=== PATIENT | female | born 1975 | race Two or more races ===

== ENCOUNTER 2016-02-12 17:00 | Emergency (ER) | payer SELFPAY ==
[2016-02-12 17:10] VITALS: TEMP 99.7; BMI 32.7
[2016-02-12 17:28] LABS: AUTOMATED EOSINOPHIL 1.7 % (0-5); AUTOMATED LYMPH 14.2 % (17-44); AUTOMATED MONOCYTE 9.2 % (3-10); AUTOMATED NEUTROPHIL 73.9 % (45-76); MPV 7.1 fL (7.4-10.4)
[2016-02-12 17:41] LABS: BLOOD UREA NITROGEN 16 MG/DL (7-17); CALCIUM 9.1 MG/DL (8.4-10.2); CALCULATED OSMOLALITY 265 MOs/Kg (270-290); CHLORIDE 103 mEq/L (98-107); GLUCOSE 99 MG/DL (70-99); SODIUM LEVEL 137 mEq/L (137-146); TOTAL PROTEIN 7.9 G/DL (6.3-8.2)
[2016-02-12 17:45] LABS: LEUKOCYTES/URINE 2+ (NEGATIVE); NITRITE/URINE NEG (NEGATIVE); URINE OCCULT BLOOD 2+ (NEG/TRACE)
--- NOTE | 2016-02-12 20:00 | EDPRACDOC ---
- General Information Chief Complaint: Abdominal Pain Stated Complaint: RT LOWER ABD PAIN Time Seen by Provider: 02/12/16 19:57 Information Source: Patient Mode Of Arrival: Car Home Medications: Home Medications Hydrocodone Bit/Acetaminophen [Lortab 5/325] 1 tab PO Q6H PRN #14 tab 02/12/16 Multivitamin [One Daily Essential] 1 tab PO DAILY 02/12/16 Allergies/Adverse Reactions: Allergies Allergy/AdvReac Type Severity Reaction Status Date / Time No Known Allergies Allergy Verified 02/12/16 17:16 - History of Present Illness Onset: YESTERDAY HPI: PAIN IS MIDWAY BETWEEN RUQ AND RLQ; SENT HERE BY Pain Location: Reports: Periumbilical Pain Context: Reports: Spontaneous Pain Severity: Mild Pain Quality: Reports: Aching Pain Radiation: Reports: No Radiation Last Menstrual Period: 02/04/16 : No Adult Abdominal History: Denies: Abdominal Surgery Modifying Factors: improves with: Nothing Female Associated Signs & Symptoms: Reports: Nausea Oral Intake: Decreased Urinary Output: Normal ED Past Medical History - History Reviewed Yes Nurses notes reviewed and agree except as marked EDM Review of Systems - Review of Systems ROS Negative Except as Marked: Yes All systems reviewed and were negative except as marked - Physical Exam Constitutional: Alert (Awake), No apparent distress Oriented to: Time, Person, Place Last recorded Vital Signs: Last Vital Signs Temp 99.7 F 02/12/16 17:06 Pulse 107 02/12/16 21:15 Resp 20 02/12/16 21:15 BP 125/64 02/12/16 21:15 Pulse Ox 98 02/12/16 21:15 Oxygen Pulse Oxygen Saturation 98 O2 Device Room Air Oxygen Flow Rate Fraction of Inspired Oxygen ( FIO2) - HEENT Head: Normal ( normocephalic) Eye Exam: Normal (PERRL, EOMI, Sclera white) Oropharynx: Normal (Pharynx:Moist without exudate,Gums-no swelling) ENT EAC: Normal TMJ: Normal Nose: No Symptoms Reported (septum midline) Neck: Normal (FROM, trachea at midline) - Respiratory/Cardiovascular Respiratory: Normal - CTA (BBS clear to auscultation without adventitious sounds ) Cardiovascular: Normal (RRR without murmur, gallop or rub) - GI Auscultation: Normal (NABS) Palpation: Normal (Soft,No rebound or guarding, non distended) Tenderness: Mild, Periumbilical Forrest's Sign: Negative - Musculoskeletal Back: Normal (Non-Tender) Extremities: Normal (Normal tone, Pulses 2+ No cyanosis or edema, FROM) - Integumentary Skin: Normal, Warm, Dry Lymphatics: Normal (no adenopathy) - Neurologic Memory Impaired: Normal Motor Function: Normal (Normal tone, Pulses 2+ No cyanosis or edema, FROM) Cranial Nerve: Normal (CN II-X11 intact sensation, strength 5/5) Cerebellar: Normal Mood Description: Normal Perception: Normal - Results 02/12/16 17:13 02/12/16 17:13 WBC 15.1 xk/uL (3.8-10.8) H 02/12/16 17:13 RBC 4.47 xM/uL (4.20-5.40) 02/12/16 17:13 Hgb 12.9 g/dL (12.0-16.0) 02/12/16 17:13 Hct 39.2 % (36-47) 02/12/16 17:13 MCV 88 fL (81-99) 02/12/16 17:13 MCH 29.0 pg (27-32) 02/12/16 17:13 MCHC 33.0 g/dl (33-36) 02/12/16 17:13 RDW 13.8 % (11.5-14.5) 02/12/16 17:13 Plt Count 433 xk/uL (130-400) H 02/12/16 17:13 MPV 7.1 fL (7.4-10.4) L 02/12/16 17:13 Neut % (Auto) 73.9 % (45-76) 02/12/16 17:13 Lymph % (Auto) 14.2 % (17-44) L 02/12/16 17:13 [place] % (Auto) 9.2 % (3-10) 02/12/16 17:13 Eos % (Auto) 1.7 % (0-5) 02/12/16 17:13 Baso % (Auto) 1.0 % (0-2) 02/12/16 17:13 Absolute Neuts (auto) 11.02 xk/uL (1.7-8.2) H 02/12/16 17:13 Absolute Lymphs (auto) 2.11 xk/uL (0.65-4.75) 02/12/16 17:13 PT 11.3 SEC (9.2-11.2) H 02/12/16 20:26 INR 1.1 02/12/16 20:26 Sodium 137 mEq/L (137-146) 02/12/16 17:13 Potassium 4.3 mEq/L (3.5-5.1) 02/12/16 17:13 Chloride 103 mEq/L (98-107) 02/12/16 17:13 Carbon Dioxide 22 mMOL/L (22-33) 02/12/16 17:13 Anion Gap 16 mEq/L (8-16) 02/12/16 17:13 BUN 16 MG/DL (7-17) 02/12/16 17:13 Creatinine 0.70 MG/DL (0.52-1.04) 02/12/16 17:13 Estimated GFR (MDRD) > 60 mL/min (>=60) 02/12/16 17:13 Glucose 99 MG/DL (70-99) 02/12/16 17:13 Calculated Osmolality 265 MOs/Kg (270-290) L 02/12/16 17:13 Calcium 9.1 MG/DL (8.4-10.2) 02/12/16 17:13 Total Bilirubin 0.5 MG/DL (0.2-1.3) 02/12/16 17:13 AST 34 IU/L (14-36) 02/12/16 17:13 ALT 35 IU/L (9-52) 02/12/16 17:13 Alkaline Phosphatase 113 IU/L (38-126) 02/12/16 17:13 Total Protein 7.9 G/DL (6.3-8.2) 02/12/16 17:13 Albumin 4.1 G/DL (3.5-5.0) 02/12/16 17:13 Urine Color Pale yellow 02/12/16 17:15 Urine Clarity Cldy 02/12/16 17:15 Urine pH 5.0 (5.0-8.0) 02/12/16 17:15 Ur Specific [place] 1.015 (1.003-1.035) 02/12/16 17:15 Urine Protein Neg (NEG/TRACE) 02/12/16 17:15 Urine Glucose (UA) Neg (NEGATIVE) 02/12/16 17:15 Urine Ketones Neg (NEGATIVE) 02/12/16 17:15 Urine Occult Blood 2+ (NEG/TRACE) H 02/12/16 17:15 Urine Nitrite Neg (NEGATIVE) 02/12/16 17:15 Urine Bilirubin Neg (NEGATIVE) 02/12/16 17:15 Urine Urobilinogen <2.0 MG/DL (0-1) 02/12/16 17:15 Ur Leukocyte Esterase 2+ (NEGATIVE) H 02/12/16 17:15 Urine RBC 5-10 (0-5) H 02/12/16 17:15 Urine WBC 10-20 (0-5) H 02/12/16 17:15 Ur Epithelial Cells 4+ 02/12/16 17:15 Urine Bacteria 4+ (NEG/FEW) H 02/12/16 17:15 Urine Mucus Occ (NEG/OCC) 02/12/16 17:15 Urine Test Neg (NEGATIVE) 02/12/16 17:15 Lab Results 02/12/16 02/12/16 02/12/16 20:26 17:15 17:15 WBC RBC Hgb Hct MCV MCH MCHC RDW Plt Count MPV Neut % (Auto) Lymph % (Auto) [place] % (Auto) Eos % (Auto) Baso % (Auto) Absolute Neuts (auto) Absolute Lymphs (auto) PT 11.3 H INR 1.1 Sodium Potassium Chloride Carbon Dioxide Anion Gap BUN Creatinine Estimated GFR (MDRD) Glucose Calculated Osmolality Calcium Total Bilirubin AST ALT Alkaline Phosphatase Total Protein Albumin Urine Color Pale yellow Urine Clarity Cldy Urine pH 5.0 Ur Specific [place] 1.015 Urine Protein Neg Urine Glucose (UA) Neg Urine Ketones Neg Urine Occult Blood 2+ H Urine Nitrite Neg Urine Bilirubin Neg Urine Urobilinogen <2.0 Ur Leukocyte Esterase 2+ H Urine RBC 5-10 H Urine WBC 10-20 H Ur Epithelial Cells 4+ Urine Bacteria 4+ H Urine Mucus Occ Urine Test Neg 02/12/16 02/12/16 17:13 17:13 WBC 15.1 H RBC 4.47 Hgb 12.9 Hct 39.2 MCV 88 MCH 29.0 MCHC 33.0 RDW 13.8 Plt Count 433 H MPV 7.1 L Neut % (Auto) 73.9 Lymph % (Auto) 14.2 L [place] % (Auto) 9.2 Eos % (Auto) 1.7 Baso % (Auto) 1.0 Absolute Neuts (auto) 11.02 H Absolute Lymphs (auto) 2.11 PT INR Sodium 137 Potassium 4.3 Chloride 103 Carbon Dioxide 22 Anion Gap 16 BUN 16 Creatinine 0.70 Estimated GFR (MDRD) > 60 Glucose 99 Calculated Osmolality 265 L Calcium 9.1 Total Bilirubin 0.5 AST 34 ALT 35 Alkaline Phosphatase 113 Total Protein 7.9 Albumin 4.1 Urine Color Urine Clarity Urine pH Ur Specific [place] Urine Protein Urine Glucose (UA) Urine Ketones Urine Occult Blood Urine Nitrite Urine Bilirubin Urine Urobilinogen Ur Leukocyte Esterase Urine RBC Urine WBC Ur Epithelial Cells Urine Bacteria Urine Mucus Urine Test - EKG EKG #1 [place]: Normal Rhythm: NSR Block: None Hypertrophy: None ST: Normal - Departure Yes I personally saw and evaluated the patient. Disposition: Home Condition: Good Final Diagnosis: Abdominal pain Instructions: Acute Abdominal Pain (ED) Education/Counseling Given To: Patient, Family Member Education/Counseling Given Regarding: Diagnosis, Treatment, Prognosis Referrals: None,No Provider [Primary Care Provider] - One Week Misael Guadalupe MD [Staff Physician] - One Week Prescriptions: Hydrocodone Bit/Acetaminophen [Lortab 5/325] 1 tab PO Q6H PRN #14 tab PRN Reason: Pain Additional Instructions: RETURN TOMORROW AT 0700 FOR GB US
[2016-02-12 20:47] LABS: PT-INR 1.1
[2016-02-12] MEDS ORDERED: Pharmacy Review for Metformin - IV Contrast Given SCH (21:00)
--- NOTE | 2016-02-12 22:04 | DIRPT ---
CLINICAL DATA: Acute lower abdominal pain, fever. EXAM: CT ABDOMEN AND PELVIS WITH CONTRAST TECHNIQUE: Multidetector CT imaging of the abdomen and pelvis was performed using the standard protocol following bolus administration of intravenous contrast. CONTRAST: 100 mL of Isovue 370 intravenously. COMPARISON: None. FINDINGS: Visualized lung bases are unremarkable. No significant osseous abnormality is noted. No gallstones are noted. The liver, spleen and pancreas appear normal. Adrenal glands and kidneys are unremarkable. No hydronephrosis or renal obstruction is noted. The appendix appears normal. No renal or ureteral calculi are noted. Uterus and ovaries are unremarkable. Urinary bladder appears normal. No significant adenopathy is noted. No abnormal fluid collection is noted. For laboratory changes are seen posterior to the cecum and in the right pericolic gutter with adjacent wall thickening of the cecum, although no definite diverticula is noted. It is uncertain if this represents focal colitis, diverticulitis or possibly epiploic appendagitis. IMPRESSION: Normal appendix. Focal inflammatory changes seen involving posterior wall of the cecum and adjacent right pericolic gutter. It is uncertain if this represents focal colitis, diverticulitis or possibly epiploic appendagitis. No abscess is noted. Electronically Signed By: Brendan Olguin Jr, M.D. On: 02/12/2016 22:01
[2016-02-12 22:35] VITALS: BP 128/62; PULSE 100
== END 2016-02-12 22:35 | disposition home or self-care (01) ==
LOC: ED 17:00
DX: R10.9 Unspecified abdominal pain (principal)
CPT/HCPCS: 36415; 74177; 80053; 81001; 81025; 85025; 85610; 87086; 93005; 99283; A9698

== ENCOUNTER 2016-02-13 07:04 | Emergency (ER) | payer SELFPAY ==
[2016-02-13 07:25] VITALS: BMI 32.3
--- NOTE | 2016-02-13 07:40 | EDPRACDOC ---
- General Information Chief Complaint: Abdominal Pain Stated Complaint: FOLLOW UP (RT FLANK PAIN) Time Seen by Provider: 02/13/16 07:37 Mode Of Arrival: Walk Home Medications: Home Medications Multivitamin [One Daily Essential] 1 tab PO DAILY 02/12/16 Allergies/Adverse Reactions: Allergies Allergy/AdvReac Type Severity Reaction Status Date / Time No Known Allergies Allergy Verified 02/12/16 17:16 - History of Present Illness Onset: friday HPI: RUQ AND RLQ ABD, SEEN THIS ED LAST NIGHT. CT SHOWED POSSIBLE CECAL INFLAMMATION , HOWEVER STRONG SUSPICION FOR GB DISEASE. T/F ASKED TO RETURN TO ED FOR US THIS AM. CURRENTLY THE PATIENT 'S PAIN IS RESOLVED. THERE HAS BEEN NO FEVER NO NAUSEA VOMITING OR DIARRHEA AT THIS TIME. Last Menstrual Period: Feb 04 : No ED Past Medical History - History Reviewed Yes Nurses notes reviewed and agree except as marked - Patient Medical History Psychological History: Denies: Depression - Social Medical History Smoking Status: Never smoker EDM Review of Systems - Review of Systems ROS Negative Except as Marked: Yes All systems reviewed and were negative except as marked - Physical Exam Constitutional: No apparent distress, Alert Oriented to: Time, Person, Place Last recorded Vital Signs: Last Vital Signs Temp 97.9 F 02/13/16 07:22 Pulse 80 02/13/16 08:43 Resp 20 02/13/16 08:43 BP 107/59 L 02/13/16 08:43 Pulse Ox 93 02/13/16 08:43 Oxygen Pulse Oxygen Saturation 93 O2 Device Room Air Oxygen Flow Rate Fraction of Inspired Oxygen ( FIO2) - HEENT Eye Exam: Normal. negative: Pale Conjunctiva, Scleral Icterus Oropharynx: Normal. negative: Membranes Dry - GI Auscultation: Normal Palpation: Normal Tenderness: Non tender - Musculoskeletal Extremities: Normal - Neurologic Memory Impaired: Normal Mood Description: Normal Thought: Coherent - Diagnostic Imaging Abdomen Image interpreted by: Radiologist 02/13/16 08:49 Patient Name: JAMARCUS MENDOZA LOC: ED : 1975 AGE: 40 Order Date:02/13/16 Date of Service:04/26 Report # [id number] Ord Physician: Lynette Hutchinson MD Exam # [id number] Emergency Physician: Lynette Hutchinson MD Exam(s): [id number] US/US GALLBLADDER-BILIARY (RUQ) CLINICAL DATA: Right upper quadrant pain for 2 days EXAM: US ABDOMEN LIMITED - RIGHT UPPER QUADRANT COMPARISON: CT 02/12/2016 FINDINGS: Gallbladder: No gallstones or wall thickening visualized. No sonographic Forrest sign noted by tin can feeder. Common bile duct: Diameter: Normal caliber, 4 mm Liver: No focal lesion identified. Within normal limits in parenchymal echogenicity. IMPRESSION: Normal right upper quadrant ultrasound. Electronically Signed By: Wyatt Kelly M.D. On: 02/13/2016 08:43 Electronically Signed By: Wyatt Kelly MD Electronically Signed Date/Time: [id number] Dictate Date/Time: 02/13/16841 Technologist: Cherry Amato Transcribed By: Radha Transcribed Date/Time: 02/13/16 0843 - Additional Information URINALYSIS YESTERDAY WAS EQUIVOCAL, URINE CULTURES BEEN SUBMITTED PLAN IS TO FOLLOW CULTURES I AGREE. - Departure Disposition: Home Condition: Stable Final Diagnosis: Abdominal pain Qualifiers: Abdominal location: right upper quadrant Qualified Code(s): R10.11 - Right upper quadrant pain Instructions: Acute Abdominal Pain (ED), Non-pharmacological Pain Management Therapies for Adults (GEN), Abdominal Pain (ED), Abdominal Pain in Women Education/Counseling Given To: Patient Education/Counseling Given Regarding: Diagnosis, Treatment, Prognosis
--- NOTE | 2016-02-13 08:46 | DIRPT ---
CLINICAL DATA: Right upper quadrant pain for 2 days EXAM: US ABDOMEN LIMITED - RIGHT UPPER QUADRANT COMPARISON: CT 02/12/2016 FINDINGS: Gallbladder: No gallstones or wall thickening visualized. No sonographic Forrest sign noted by tube drawer. Common bile duct: Diameter: Normal caliber, 4 mm Liver: No focal lesion identified. Within normal limits in parenchymal echogenicity. IMPRESSION: Normal right upper quadrant ultrasound. Electronically Signed By: Wyatt Kelly M.D. On: 02/13/2016 08:43
[2016-02-13 10:20] VITALS: BP 110/62; PULSE 76; TEMP 97.7
== END 2016-02-13 10:19 | disposition home or self-care (01) ==
LOC: ED 07:04
DX: R10.11 Right upper quadrant pain (principal)
CPT/HCPCS: 76705; 99283